=== PATIENT | male | born 1960 | race Caucasian/White ===

== ENCOUNTER 2018-10-15 11:21 | Emergency (ER) | payer MEDICAID ==
[~2018-10-15] VITALS: Ht 172.7 cm; Wt 104.0 kg
[2018-10-15 13:33] LABS: BASOPHILS % 1.3 % (0.0-2.0); HEMATOCRIT. 47.3 % (42.0-52.0); HEMOGLOBIN. 16.3 g/dL (14.0-18.0); LYMPHOCYTES % 25.4 % (20.0-50.0); MEAN CORPUSCULAR HEMOGLOBIN 30.9 pg (28.0-32.0); MEAN CORPUSCULAR VOLUME 89.9 fL (80.0-94.0); NEUTROPHILS % 56.3 % (40.0-76.0); PLATELET 192 x1000/uL (130-400); RED BLOOD CELL COUNT 5.26 mill/uL (4.7-6.1); RED CELL DISTRIBUTION WIDTH 13.8 % (11.6-14.6)
[2018-10-15 13:38] LABS: CHLORIDE 106 mEq/L (98-107)
[2018-10-15 15:00] VITALS: BP 146/88
== END 2018-10-15 15:02 | disposition home or self-care (01) ==
LOC: ER 11:21
DX: E87.5 Hyperkalemia (principal); Z98.890 Other specified postprocedural states
CPT/HCPCS: 36415; 93005; 99284